=== PATIENT | female | born 1965 | race Caucasian/White ===

== ENCOUNTER 2021-01-10 09:09 | Outpatient (CLI) | payer OTHER ==
[2021-01-10] MEDS ORDERED: GADOTERATE 10 MMOL/20 ML VIAL ONE (10:30)
== END 2021-01-10 23:59 | disposition home or self-care (01) ==
LOC: CFH 09:09
PROVIDERS: ATTEND Surgery
DX: N60.41 Mammary duct ectasia of right breast (principal)
CPT/HCPCS: 77049; A9575; C8908